=== PATIENT | female | born 1970 | race Caucasian/White ===

== ENCOUNTER 2019-03-17 11:33 | Emergency (ER) | payer OTHER ==
[2019-03-17 12:41] VITALS: BP 152/90
--- NOTE | 2019-03-17 12:45 | UC ---
Dental HPI - HPI Summary HPI Summary: 49 yo female presents with dental pain. She tells me that over the last 2-3 days she has had increasing pain and swelling to an upper front tooth. She called her dentist yesterday and was able to schedule an appointment for tomorrow. This morning she had a "bubble" burst on her gum and pus came out. She has been taking tylenol and using oral gel with little relief. She is tolerating po well, but does have pain. - History of Current Complaint Chief Complaint: UCDentalProblem Stated Complaint: TOOTH ACHE Time Seen by Provider: 03/17/19 12:45 Hx Obtained From: Patient Hx Last Menstrual Period: 12/26 Onset/Duration: Gradual Onset Severity: Moderate Pain Intensity: 8 Pain Scale Used: 0-10 Numeric - Allergies/Home Medications Allergies/Adverse Reactions: Allergies Allergy/AdvReac Type Severity Reaction Status Date / Time No Known Allergies Allergy Verified 03/17/19 12:42 PMH/Surg Hx/FS Hx/Imm Hx Endocrine History: Diabetes GI/ History: Gastroesophageal Reflux - Surgical History Surgical History: Yes Surgery Procedure, Year, and Place: , FX LEG, HERNIA, CHOLECYSTECTOMY - Family History Known Family History: Positive: Non-Contributory - Social History Lives: With Family Alcohol Use: Rare Alcohol Amount: once a year Substance Use Type: None Smoking Status (MU): Former Smoker Type: Cigarettes Amount Used/How Often: 1.5 PPD Length of Time of Smoking/Using Tobacco: 32 years Have You Smoked in the Last Year: No When Did the Patient Quit Smoking/Using Tobacco: 2008 Household Exposure Type: Cigarettes - Immunization History Most Recent Influenza Vaccination: 2006 Most Recent Tetanus Shot: less than 10 years Most Recent Pneumonia Vaccination: never Review of Systems All Other Systems Reviewed And Are Negative: No Constitutional: Positive: Negative Skin: Positive: Negative Eyes: Positive: Negative ENT: Positive: Dental Pain Respiratory: Positive: Negative Cardiovascular: Positive: Negative Neurological: Positive: Negative Psychological: Positive: Negative Physical Exam - Summary Physical Exam Summary: GENERAL: NAD. WDWN. No pain distress. SKIN: No rashes, sores, lesions, or open wounds. HEENT: Head: AT/NC Eyes: EOM intact. Conjunctiva clear without inflammation or discharge. Ears: Hearing grossly normal. TMs intact, no bulging, erythema, or edema. Nose: Nasal mucosa pink and moist. NTTP maxillary and frontal sinus. Throat: Posterior oropharynx without exudates, erythema, or tonsillar enlargement. Uvula midline. NECK: Supple. Nontender. No lymphadenopathy. CHEST: No accessory muscle use. Breathing comfortably and in no distress. CV: Pulses intact. Cap refill <2seconds NEURO: Alert. PSYCH: Age appropriate behavior. Triage Information Reviewed: Yes Vital Signs: Initial Vital Signs Temp 98.4 F 03/17/19 12:37 Pulse 72 03/17/19 12:37 Resp 16 03/17/19 12:37 BP 152/90 03/17/19 12:37 Pulse Ox 98 03/17/19 12:37 Vital Signs Reviewed: Yes Dental: Positive: Percussion Tenderness @ - Tooth #10, Gross Decay/Caries @ - throughout, Dental Fracture @ - Tooth #10, Abscess @ - Tooth #10. Negative: Cellulitis @, Cervical Lymphadenopathy, Bleeding Dental Complaint Course/Dx - Course Course Of Treatment: Tooth #10 abscess. - Differential Dx/Diagnosis Provider Diagnosis: Tooth abscess Discharge ED - Sign-Out/Discharge Documenting (check all that apply): Patient Departure All imaging exams completed and their final reports reviewed: No Studies - Discharge Plan Condition: Stable Disposition: HOME Prescriptions: Amoxicillin PO (*) [Amoxicillin 500 MG CAP*] 500 mg PO Q12H #14 cap Lidocaine 2% VISCOUS* [Xylocaine 2% Viscous*] 15 ml SWISH SPIT Q4H PRN #200 ml PRN Reason: Pain - Moderate Patient Education Materials: Dental Abscess (ED) Referrals: Luciana Lin NP [Primary Care Provider] - Additional Instructions: If you develop a fever, shortness of breath, chest pain, new or worsening symptoms - please call your PCP or go to the ED immediately. Your blood pressure was high at todays visit. Please see your primary provider within 4 weeks for recheck and re-evaluation. Continue tylenol as directed Please keep your appointment with your dentist tomorrow - Billing Disposition and Condition Condition: STABLE Disposition: Home
== END 2019-03-17 12:58 | disposition home or self-care (01) ==
LOC: UCEAST 11:33
DX: K04.7 Periapical abscess without sinus (principal); Z87.891 Personal history of nicotine dependence; K21.9 Gastro-esophageal reflux disease without esophagitis
CPT/HCPCS: 99202; G0463

== ENCOUNTER 2019-05-08 18:54 | Emergency (ER) | payer OTHER ==
[2019-05-08 20:13] VITALS: BP 92/59
[2019-05-08] MEDS ORDERED: Erythromycin OPTH OINT* APPLIC OINT BOTH EYES ONE (20:53)
--- NOTE | 2019-05-08 21:52 | UC ---
Eye Complaint HPI - HPI Summary HPI Summary: Patient is a 49-year-old female presents for evaluation of bilateral eyes burning, itching, drainage. Patient states she is at her problem was discussed with burning stove. Patient states she's been there for 5 days. Patient states initially her eyes were burning. Patient states progressively she's had drainage of the great right eye that was green. Patient states her eyes were stuck to close this morning. Patient states the left eye started to drain today. Patient's been using [id number] Visine short-term relief. Patient states they do have a pot of water on the stove at the bedroom is not humidified. Patient does not have any vision changes. No sinus congestion. No ear pain. Similar symptoms. Patient does not wear contact lenses or corrective lenses. Patient's medications reviewed this visit. 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 Hx Last Menstrual Period: pre menopausal Pain Intensity: 2 Pain Scale Used: 0-10 Numeric - Allergies/Home Medications Allergies/Adverse Reactions: Allergies Allergy/AdvReac Type Severity Reaction Status Date / Time No Known Allergies Allergy Verified 05/08/19 20:14 Home Medications: Home Medications Dulaglutide [Trulicity] 05/08/19 [History] Gabapentin CAP(*) [Neurontin 400 mg CAP(*)] 600 mg 05/08/19 [History] Hydrochlorothiazide TAB* [Hydrodiuril TAB*] 05/08/19 [History] PMH/Surg Hx/FS Hx/Imm Hx Endocrine History: Diabetes - Surgical History Surgical History: Yes Surgery Procedure, Year, and Place: , FX LEG, HERNIA, CHOLECYSTECTOMY - Family History Known Family History: Positive: Non-Contributory - Social History Occupation: Employed Full-time Lives: With Family Alcohol Use: Rare Alcohol Amount: once a year Substance Use Type: None Smoking Status (MU): Former Smoker Type: Cigarettes Amount Used/How Often: 1.5 PPD Length of Time of Smoking/Using Tobacco: 32 years Have You Smoked in the Last Year: No When Did the Patient Quit Smoking/Using Tobacco: 2008 Household Exposure Type: Cigarettes - Immunization History Most Recent Influenza Vaccination: 2006 Most Recent Tetanus Shot: less than 10 years Most Recent Pneumonia Vaccination: never Review of Systems All Other Systems Reviewed And Are Negative: Yes Constitutional: Positive: Negative Skin: Positive: Negative Eyes: Positive: Drainage, Eye Redness ENT: Positive: Negative Respiratory: Positive: Negative Cardiovascular: Positive: Negative Gastrointestinal: Positive: Negative Physical Exam - Summary Physical Exam Summary: Vital Signs Reviewed: Yes A+Ox3, no distress Eyes: LEXA, EOM intact and full, injected conjunctiva, inflammed , no photophobia, crisp fundoscopic margin b/l visual acuity assessed ENT: Hearing grossly normal TM x 2 clear, turbinates mildly inflammed, mmoist, uvula midline, no exudate, no erythema Neck: Positive: Supple Respiratory: Positive: No respiratory distress, No accessory muscle use + CTA throughout no w/r Cardiovascular: RRR nl s1, s2 no m/r CBT <2 sec abd soft + BS nt/nd no guarding, no distension Musculoskeletal Exam: SANCHEZ x 4 without difficulty Strength Intact, ROM Intact Neurological: Positive: Alert, + sensation throughout Psychological: Positive: Normal Response To examiner Skin: Positive: no rash, no ecchymosis Triage Information Reviewed: Yes Vital Signs: Initial Vital Signs Temp 98.1 F 05/08/19 20:05 Pulse 102 05/08/19 20:05 Resp 16 05/08/19 20:05 BP 92/59 05/08/19 20:05 Pulse Ox 97 05/08/19 20:05 Eye Complaint Course/Dx - Course Course Of Treatment: Patient presents to urgent care for evaluation of redness in her eyes. Patient states progressive or 4 days. 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 Patient suggesting she developed some green discharge from her right eye and today from the left. Patient's been using Visine with short-term improvement. Patient states eyes are very itchy no photophobia no trauma no foreign body sensation however they do feel kind of dry per patient. On exam vital signs are stable. Visual acuity reviewed. Patient's eyes are bilaterally injected. Scant discharge from the right. Conjunctiva are inflamed and erythematous. No photophobia. Will start patient antibiotics. Discussed with patient secretion precautions. Additionally, recommend pt humidify air in room where sleeping and in house Recommend patient follow-up with her rn x ray this week. Return precautions discussed. Patient comfortable in agreement with plan. I asked pt regarding BP - reports "its always low, like under 100" pt is non toxic appearing, no distress - Differential Dx/Diagnosis Provider Diagnosis: Conjunctivitis Discharge ED - Sign-Out/Discharge Documenting (check all that apply): Patient Departure All imaging exams completed and their final reports reviewed: No Studies - Discharge Plan Condition: Stable Disposition: HOME Patient Education Materials: Conjunctivitis (ED) Referrals: Luciana Lin J[employer] JUSTICE SPECIALIST [Primary Care Provider] - Additional Instructions: - apply eye ointment to each eye 3 times a day for 5 days -okay to alternate ibuprofen (Advil, Motrin) 600mg and tylenol every 3 hours for pain. Take with food - okay to use lubricating eye drops as previously - these infections are very contagious - thoroughly wash hands before and after applying eye drops. - wash pillowcase and bedding, pillows frequently - If eyelids become sticky - use a warm, wet cloth to soften and clean away secretions - make sure you are humidifying the air in the room where you sleep and in the room with the woodstove- boil water, how steam shower, humidfier -contact your eye dropper assembler to schedule a follow-up or if you have any questions or concerns - go to the emergency department if there are any changes to your symptoms or you have any concerns - Billing Disposition and Condition Condition: STABLE Disposition: Home
== END 2019-05-08 21:06 | disposition home or self-care (01) ==
LOC: UCEAST 18:54
DX: H10.9 Unspecified conjunctivitis (principal); E11.9 Type 2 diabetes mellitus without complications; Z79.4 Long term (current) use of insulin; Z87.891 Personal history of nicotine dependence
CPT/HCPCS: 99212; A9270-GY; G0463